=== PATIENT | male | born 1980 | race African-American/Black ===

== ENCOUNTER 2019-05-30 15:20 | Emergency (ER) | payer SELFPAY ==
[~2019-05-30] VITALS: Ht 180.3 cm; Wt 96.2 kg
[2019-05-30 16:12] LABS: Urine Bacteria NONE SEEN /hpf (None Seen); Urine Blood Negative /uL (Negative); Urine Specific Gravity 1.031 (1.001-1.035); Urine WBC 666 /hpf (0 - 3)
[2019-05-30 17:14] VITALS: BP 111/76
[2019-05-30] MEDS ORDERED: cefTRIAXone SOD 1,000 MG VL IM ONE (17:45)
== END 2019-05-30 18:16 | disposition home or self-care (01) ==
LOC: ER 15:20
DX: A64 Unspecified sexually transmitted disease (principal)
CPT/HCPCS: 81001; 96372; 99283; J0696